=== PATIENT | female | born 1960 | race American Indian/Alaskan Native ===

== ENCOUNTER 2017-06-23 14:23 | Emergency (ER) | payer OTHER ==
[2017-06-23 14:24] VITALS: BMI 39.1
[2017-06-23 14:38] VITALS: TEMP 98.1; O2SAT 99
--- NOTE | 2017-06-23 15:51 | C.PDOC ---
History Of Present Illness 57 y/o female presents to the ER complaining of vaginal bleeding which occurred over the past 2 days. Patient states that she wiped herself and she saw blood 2 days ago. Patient states that the bleeding stopped afterwards, However, she noticed that the bleeding returned when she woke up in the morning today. Otherwise, patient denies having fever, chills, hematuria, dysuria, and other complaints. Time Seen by Provider: 06/23/17 15:34 Chief Complaint (Nursing): Female Genitourinary History Per: Patient History/Exam Limitations: no limitations Onset/Duration Of Symptoms: Days Current Symptoms Are (Timing): Still Present Severity: Moderate Past Medical History Reviewed: Historical Data, Nursing Documentation, Vital Signs Vital Signs: Last Vital Signs Temp 98.1 F 06/23/17 14:33 Pulse 84 06/23/17 14:33 Resp 20 06/23/17 14:33 BP 196/93 H 06/23/17 14:33 Pulse Ox 99 06/23/17 15:54 - Medical History PMH: Arthritis, Bronchitis, Diabetes, Gastritis, HTN, Peripheral Edema Surgical History: Endoscopy, - [facility] CORONAR ARTERIOGR-2 CATH (03/22/14) RT & LT HEART ANGIOCARD (03/22/14) RT/LEFT HEART CARD CATH (03/22/14) Family History: States: No Known Family Hx - Social History Hx Tobacco Use: Yes Hx Alcohol Use: Yes Hx Substance Use: No - Immunization History Hx Tetanus Toxoid Vaccination: No Hx Influenza Vaccination: No Review Of Systems Except As Marked, All Systems Reviewed And Found Negative. Constitutional: Negative for: Fever, Chills Gastrointestinal: Negative for: Nausea, Vomiting, Diarrhea Genitourinary: Positive for: Vaginal Bleeding. Negative for: Dysuria, Hematuria Physical Exam - Physical Exam Appears: Non-toxic, No Acute Distress Skin: Normal Color, Warm Head: Atraumatic, Normacephalic Eye(s): bilateral: Normal Inspection Nose: Normal Oral Mucosa: Moist Neck: Supple Chest: Symmetrical Cardiovascular: Rhythm Regular Respiratory: Normal Breath Sounds, No Rales, No Rhonchi, No Wheezing Gastrointestinal/Abdominal: Normal Exam, Soft, No Tenderness Neurological/Psych: Oriented x3, Normal Speech ED Course And Treatment O2 Sat by Pulse Oximetry: 99 (RA) Pulse Ox Interpretation: Normal Medical Decision Making Medical Decision Making: Plan: --HCG, Qualitative Urine --UA Disposition Counseled Patient/Family Regarding: Need For Followup - Disposition Disposition: HOME/ ROUTINE Disposition Time: 16:34 Condition: STABLE Additional Instructions: You must follow uo with your [facility]PERATOR for full evaluation. Forms: [facility] ([facility]), General Discharge Instructions - Clinical Impression Clinical Impression: Dysfunctional uterine bleeding - Scribe Statement The provider has reviewed the documentation as recorded by the Ashley Valdes Provider Attestation: All medical record entries made by the Wm[place]andrea were at my direction and personally dictated by me. I have reviewed the chart and agree that the record accurately reflects my personal performance of the history, physical exam, medical decision making, and the department course for this patient. I have also personally directed, reviewed, and agree with the discharge instructions and disposition.
[2017-06-23 16:02] LABS: HCG,QUALITATIVE URINE NEGATIVE (NEGATIVE)
[2017-06-23 16:06] LABS: SQUAMOUS EPITHIAL 1 /hpf (0-5); URINE BILIRUBIN NEGATIVE (NEGATIVE); URINE BLOOD 3+ (NEGATIVE); URINE CLARITY Clear (Clear); URINE COLOR Straw (YELLOW); URINE GLUCOSE (UA) 3+ mg/dL (Normal); URINE LEUKOCYTE ESTERASE NEG Leu/uL (Negative); URINE PROTEIN NEGATIVE (NEGATIVE); URINE UROBILINOGEN NORMAL mg/dL (0.2-1.0)
[2017-06-23 16:44] VITALS: BP 175/92; PULSE 66; RESP 19
== END 2017-06-23 16:50 | disposition home or self-care (01) ==
LOC: C.ER 14:23
DX: N93.8 Other specified abnormal uterine and vaginal bleeding (principal); I10 Essential (primary) hypertension; E11.9 Type 2 diabetes mellitus without complications; Z72.0 Tobacco use